=== PATIENT | female | born 1935 | race Caucasian/White ===

== ENCOUNTER → 2017-10-23 | Outpatient (CLI) | payer OTHER ==
[~2017-10-23] MED LIST: ACID CONTROL20 MG; AMBIEN 10 MG TA10 MG PO; AMBIEN 5 MG TABL5 M1 PO; ATARAX PO; ATENOLOL 100MG100 M2 PO; ATENOLOL 25 MG25 M1 PO; ATENOLOL 50 MG50 M1 PO; ATENOLOL 50MG T50 M1 PO; ATENOLOL 50MG T50 MG PO; AZITHROMYCIN 2250 MG PO; B-COMPLEX-VITA1 EACH PO; B12INJ; BALANCED B COM1 EAC2 PO; BETA CAROT10000 UNIT; BETA CAROTEN25000 IU; BETA CAROTEN25000 IU PO; BIAXIN 500 MG500 M2 PO; BRAIN MIGHT-DH1 EACH PO; BUMETANIDE 1 MG1 M1 PO; CALCIUM LACTAT100 MG PO; CARDIZEM CD180 MG PO; CARDIZEM CD240 MG PO; CARNITINE250 MG PO; CIPROFLOXACIN500 M1 PO; CO Q-1030 MG PO; COCONUT OIL100 GM MC; COD LIVER OIL1 EAC4 PO; COQ-10100 MG PO; COUMADIN 5 MG TA5 M1 PO; COUMADIN7.5 MG PO; DHEA 10 MG TAB1 EACH PO; DILTIAZEM 24HR180 M1 PO; DMAE MC; DOXYCYCLINE 10100 MG PO; ENALAPRIL MALEA10 M1 PO; FIRST-TESTOSTER60 G1 TD; FISH OIL 1,001000 M2 PO; FISH OIL 1,2001 EAC3 PO; FISHOIL; FLUOXETINE; FUROSEMIDE 40 M40 M1 PO; FUROSEMIDE PO; GLUCOSAMINE HC500 MG PO; HORMONE; HORMONE TOP; HYDROCHLOROTH12.5 MG PO; K-DUR 20 MEQ T20 MEQ PO; K-DUR10 MEQ PO; KLOR-CON 1010 MEQ PO; KLOR-CON PO; L-ARGININE HC1000 GM PO; LANSOPRAZOLE PO; LEVAQUIN 500 M500 M1 PO; LEVAQUIN 500 M500 M2 PO; LEVOTHROID PO; LEVOTHROID100 MC1 PO; LEVOTHROID88 MCG PO; LEVOTHYROXIN0.075 MG PO; LISINOPRIL-HCT1 EAC1 PO; LISINOPRIL10 MG PO; LISINOPRIL5 MG PO; LIVAPLEX PO; LOTENSIN PO; LOVENOX SC; Livaplex PO; MAGIC MOUTHWASH BLM SW&SWALLOW; MAGNESIUM250 M1 PO; MILK THISTLE1 GM MC; NITROSTAT0.3 MG PO; NITROSTAT0.4 MG SL; OMEPRAZOLE; OTC PAIN MED; OXYCODONE HCL15 MG PO; PACERONE 200 M200 M1 PO; PLAVIX 75 MG TA75 M1 PO; PRILOSEC 20 MG20 MG PO; PRINIVIL5 MG PO; PROTONIX40 M1 PO; RED YEAST RICE600 MG PO; RYTHMOL SR225 MG PO; RYTHMOL300 MG PO; SORINE 80 MG TA80 M1 PO; SPIRONOLACTONE25 M1 PO; TESTOSTERONE; TOPROL XL100 MG; TOPROL XL25 MG PO; TRAMADOL 50 MG50 MG PO; TURMERIC500 MG PO; VANTIN PO; VASOTEC10 MG PO; VITAMIN B-12100 MCG PO; VITAMIN D3400 UNIT; VITAMIN D35000 UNI1 PO; VITAMIN E400 UNIT PO; VITAMINC500 PO; ZINC CHELATE50 MG PO; [UNRECOGNIZED DRUG - OTHER]; [UNRECOGNIZED DRUG - OTHER]; [UNRECOGNIZED DRUG - OTHER]; [UNRECOGNIZED DRUG - OTHER] PO; [UNRECOGNIZED DRUG - OTHER] PO; [UNRECOGNIZED DRUG - OTHER] TOP
== END ==
LOC: M.ULTRA 12:55
DX: N63.20 Unspecified lump in the left breast, unspecified quadrant (principal)

== ENCOUNTER 2017-12-14 09:23 | Observation (INO) | payer OTHER ==
[2017-12-14] VITALS (10 sets, daily range): BP systolic 126–163; BP diastolic 55–88
[~2017-12-14] VITALS: Ht 157.5 cm; Wt 71.7 kg
--- NOTE | ~2017-12-14 | H ---
[address] [address] HISTORY AND PHYSICAL Name: REBEL ROMERO Room: [address] Mil Boucher#: [id number] Admission: 12/14/17 Attend Phys: Jun Amador MD Discharge: 12/15/17 Date of : 35 Report #: [id number] THIS REPORT FOR: //name// Please refer to the History and Physical performed in the physician's office. By: [id number] Records Staff ELY /JACKSON
[~2017-12-14 09:23] MED LIST changes: -DILTIAZEM 24HR180 M1 PO; -LEVAQUIN 500 M500 M1 PO; -LEVAQUIN 500 M500 M2 PO; -MAGIC MOUTHWASH BLM SW&SWALLOW; -PLAVIX 75 MG TA75 M1 PO
[2017-12-14] MEDS ORDERED: COUMADIN7.5 MG PO (10:17)
[2017-12-14 10:43] LABS: HEMATOCRIT 45.4 % (37.0-47.0); HEMOGLOBIN 15.1 gm/dL (12.0-15.0); MCH 30.5 pg (26.0-34.0); MCHC 33.2 g/dL (28.0-37.0); MCV 91.8 fL (80.0-100.0); MPV 8.3 fl. (7.2-11.1); RBC 4.94 mil/uL (4.20-5.00); RDW-CV 15.4 % (10.5-14.5); WBC 6.9 thou/uL (4.0-11.0)
[2017-12-14 10:53] LABS: ANION GAP 10 mmol/L (7-16); APTT 27.5 Seconds (25.0-31.3); BUN 18 mg/dL (7-18); CALCIUM 9.2 mg/dL (8.5-10.1); CHLORIDE 103 mmol/L (98-107); CO2 28 mmol/L (21-32); GLUCOSE 99 mg/dL (70-99); INR 1.2; POTASSIUM 4.1 mmol/L (3.5-5.1); PROTIME 11.7 Seconds (9.20-11.50); SODIUM 141 mmol/L (136-145)
[2017-12-14 10:58] LABS: ALKALINE PHOSPHATASE 79 U/L (46-116); CHOLESTEROL 199 mg/dL (<200); HDL CHOLESTEROL 46 mg/dL (>40); LDL CHOLESTEROL 133 mg/dL (<100); SERUM ASSESSMENT Clear; SGOT 23 U/L (15-37); SGPT 26 U/L (30-65); TC:HDL 4.3 Ratio (Not establshd); TOTAL BILIRUBIN 1.1 mg/dL (<0.1-1.0); TOTAL PROTEIN 7.6 g/dL (6.4-8.2); TRIGLYCERIDE 100 mg/dL (<150); VLDL 20 mg/dL (<40)
--- NOTE | 2017-12-14 13:55 | EKG ---
[place] [address] ELECTROCARDIOGRAM REPORT Name: REBEL ROMERO Room: [address] IN .R.#: [id number] Admission: 12/14/17 Attend Phys: Jun Amador MD Discharge: Date of : 35 Report #: [id number] THIS REPORT FOR: //name// [facility] Test Date: 2017-12-14 Test Time: 10:29:47 Pat Name: REBEL ROMERO Department: Room: Gender: F Community Development Specialist: : 1935 Requested By: Jun Amador Order Number: [id number] Dipesh MD: Carter Melendrez Measurements Intervals [place] Rate: 77 P: [place]: QRS: -23 QRSD: 131 T: 148 QT: 407 QTc: 461 Interpretive Statements Atrial tachycardia v paced rhythm Compared to ECG 03/18/2016 12:24:43 rate has slowed Electronically Signed On 12-14-2017 13:55:46 CDT by Carter Melendrez [email or web address] <ELECTRONICALLY SIGNED> By: Carter Melendrez MD, [facility] 12/14/17 1355 1029 1029 Carter Melendrez MD, FACC /EPI
--- NOTE | 2017-12-14 19:53 | NUR ---
PT ARRIVED TO ROOM 223 AT APPROX 1320 FROM MID LEVEL CLINICIAN. REPORT RECIEVED FROM DENIS HASSAN. PT A/O X4, C/O PAIN TO RIGHT WRIST. PRESSURE MAINTAINED IN VASC BAND WITH 11 CC IN. 2 CC AIR TAKEN OUT AT APPROX 1350, WHEN WRIST REASSESED 15 MIN LATER, SMALL HEMATOMA FORMED ON WRIST ABOVE THE VASC BAND. MANUAL PRESSURE HELD ON SITE, AFTER THIS BRUISE TO AREA NOTED BUT NOW SOFT AND LUMP HAD DECREASED. CONTINUED TO MONITOR CLOSELY, AFTER APPROX 1 HR, 2 ADDITIONAL CC AIR REMOVED, WHEN REASSED SMALL AMOUNT OF BLOOD OOZING FROM AREA OF CATH INSERTION, 2 CC REPLACED IN VASC BAND. CONTINUED TO MONITOR, HEMATOMA DID NOT INCREASE IN SIZE BUT DID BECOME FIRM AGAIN, MANUAL PRESSURE HELD AND DR VILLA NOTIFIED. INSTRUCTED TO MAINTAIN THE PRESSURE FOR 1 HR AND THEN SLOWLY DECREASE AIR BY 1 CC INSTEAD OF 2. STARTED TAKING 1 CC OUT AT APPROX 1700. BY 1900 6 CC TOTAL TAKEN OUT OF DEVICE. PT GIVEN PAIN MEDS PER MAR. VSS, PT USING CALL LIGHT APPROPRIALTY. FALL PRECAUTIONS IN PLACE. REPORT GIVEN TO MO PAREDES.
--- NOTE | 2017-12-14 22:07 | NUR ---
RECEIVED REPORT AND ASSUMED CARE OF PATIENT AT 1930. 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 ASSESSMENT AND VITALS COMPLETED CHARTED, VSS. PATIENT A&OX4. DENIES PAIN AND DISCOMFORT. TR BAND IN PLACE WITH MINIMAL DRIED BLOOD. HEMATOMA OBSERVED ABOVE THE BAND, SOFT AND NON-TENDER. 2 CC'S ARE REMAINING IN THE TR BAND AT THIS TIME. NO FRESH BLOOD OBSERVED. GOAL IS TO CONTINUE SLOWLY RELEASING PRESSURE FROM TR AND OBSERVE IMPROVEMENT OF HEMATOMA. PATIENT REMINDED OF POST CATH PRECAUTIONS, INCLUDING NOT USING RIGHT ARM TO LIFT ANYTHING OR PUSH SELF UP WITH. PATIENT VERBALIZES UNDERSTANDING. CALL LIGHT WITHIN REACH
[2017-12-15] VITALS (7 sets, daily range): BP systolic 133–161; BP diastolic 55–87
[2017-12-15 04:52] LABS: HEMATOCRIT 41.2 % (37.0-47.0); HEMOGLOBIN 13.7 gm/dL (12.0-15.0); MCH 30.5 pg (26.0-34.0); MCHC 33.3 g/dL (28.0-37.0); MCV 91.7 fL (80.0-100.0); MPV 8.8 fl. (7.2-11.1); RBC 4.49 mil/uL (4.20-5.00); RDW-CV 15.6 % (10.5-14.5); WBC 11.4 thou/uL (4.0-11.0)
[2017-12-15 05:22] LABS: ANION GAP 12 mmol/L (7-16); BUN 21 mg/dL (7-18); CALCIUM 8.8 mg/dL (8.5-10.1); CHLORIDE 104 mmol/L (98-107); CO2 22 mmol/L (21-32); CREATININE 0.8 mg/dL (0.6-1.3); GLUCOSE 98 mg/dL (70-99); SODIUM 138 mmol/L (136-145); TROPONIN-I LEVEL <0.06 ng/mL (<0.06)
--- NOTE | 2017-12-15 07:00 | NUR ---
PATIENT PARTIALLY PROGRESSING TOWARDS GOALS: TR BAND PRESSURE COMPLETELY RELEASED AND GAUZE/TEGADERM IN PLACE. NO DRAINAGE NOTED ON GAUZE. BRUISING REMAINS ABOVE RADIAL SITE BUT IMPROVEMENT NOTED. SITE IS SOFT AND NON-TENDER. PATIENT HAD C/O CHEST PAIN THIS AM AT 0650 RELIEVED WITH NITRO. PATIENT REPORTS SHORTNESS OF AIR, O2 2L NC PLACED WITH SATS >92%. PATIENT APPEARS ANXIOUS AND HAS SLIGHT TREMORS. WILL ADDRESS POSSIBLY ANXIETY WITH PHYSICIAN. CALL LIGHT WITHIN REACH
--- NOTE | 2017-12-15 09:55 | EKG ---
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: : 1935 Requested By: Jun Amador Order Number: [id number] Dipesh MD: Carter Melendrez Measurements Intervals [place] Rate: 71 P: IN: QRS: -8 QRSD: 138 T: 161 QT: 427 QTc: 465 Interpretive Statements Atrial fibrillation v paced complexes Left bundle branch block Compared to ECG 12/14/2017 10:29:47 Left bundle-branch block now present Electronically Signed On 12-15-2017 9:55:29 CDT by Carter Melendrez [email or web address] <ELECTRONICALLY SIGNED> By: Carter Melendrez MD, [facility] 12/15/17 0955 17 Carter Melendrez MD, [facility] /EPI
--- NOTE | 2017-12-15 10:05 | EKG ---
[place] [address] ELECTROCARDIOGRAM REPORT Name: HENRIETTAISRAMAYRA SIMMONSREBEL J Room: [address] ADM IN .R.#: [id number] Admission: 12/14/17 Attend Phys: Jun Amador MD Discharge: Date of : 35 Report #: [id number] THIS REPORT FOR: //name// [facility] Test Date: 2017-12-15 Test Time: 04:40:06 Pat Name: REBEL ROMERO Department: Room: [address] Gender: F Director Community Center: ABBI : 1935 Requested By: Jun Amador Order Number: [id number] Reading MD: Carter Melendrez Measurements Intervals [place] Rate: 75 P: [place]: QRS: 14 QRSD: 136 T: 196 QT: 420 QTc: 470 Interpretive Statements Atrial fibrillation LBBB Compared to ECG 12/14/2017 10:29:47 Intraventricular conduction delay now present Ventricular-paced complex(es) or rhythm no longer present Electronically Signed On 12-15-2017 10:05:10 CDT by Carter Melendrez [email or web address] <ELECTRONICALLY SIGNED> By: Carter Melendrez MD, [facility] 12/15/17 1005 0440 0440 Carter Melendrez MD, [facility] /EPI
--- NOTE | 2017-12-15 10:07 | EKG ---
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
--- NOTE | 2017-12-15 11:35 | NUR ---
MET WITH PT TO DISCUSS HOME SITUATION/DC PLANNING. PT LIVES WITH SPOUSE. STATES THEY ARE BOTH INDEPENDENT AND ACTIVE. PT USES NO EQUIPMENT. 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 PT HAS HAD HH IN THE PAST. DENIES ANY DC NEEDS. WILLL FOLLOW
[2017-12-15] MEDS ORDERED: PLAVIX 75 MG TA75 M1 PO (13:36)
--- NOTE | 2017-12-15 16:55 | NUR ---
ASSUMED PT CARE AT 0730, FULL ASSESMENT DONE CHARTED. PT A/O X4, C/O CHEST PAIN THIS AM, PT APPEARS VERY ANXIOUS, SHE C/O CHEST PAIN, HAD SOME NITRO THIS AM, REPORTS THAT IT DID NOT HELP, DENIES WANTING ANYMORE NITRO. PT DID WANT TO TRY SOMETHING FOR ANXIETY. ORDER FOR VALUME RECIEVED, THIS DID HELP PT, SHE WAS ABLE TO SLEEP. STATES CHEST PAIN IS GONE. PT UP WALKING AD JUDAH, ATE A GOOD LUNCH. RECIEVED DISCHARGE ORDERS, PT EDUCATED ON NEW MEDS, POST CATH INSTRUCTIONS. PT LEFT AT APPROX 1345 WITH DTR.
--- NOTE | 2017-12-16 13:25 | CARD ---
[address] [address] CARDIAC CATH REPORT Name: REBEL ROMERO Room: [address] Citlaly#: [id number] Admission: 12/14/17 Attend Phys: Jun Amador MD Discharge: 12/15/17 Date of : 35 Report #: [id number] THIS REPORT FOR: //name// APPROVED REPORT Study performed: 12/14/2017 10:32:07 Patient Details Patient Status: Out-Patient Room #: The patient is a 82 year-old female Event Personnel Jun Amador Compounding Scaler, Satinder Medina, Stella Aviles Monitor, Lisa Khoury RN Elevator Inspector, Carter Melendrez Compounding Scaler, Verónica Mijares Elevator Inspector Procedures Performed Art Access - R radial artery , Left Heart Catheterization, Selective Right and Left Coronary Angiography, PTCA with Stenting Procedure Narrative The patient was brought electively to the Cardiac Catheterization Laboratory and was prepped and draped in a sterile manner. The right wrist was infiltrated with 2% Lidocaine subcutaneous anesthesia. A Slender Glidesheath sheath was inserted into the right radial artery. Coronary angiography was performed using coronary diagnostic catheters. The right coronary system was accessed and visualized with a DCR: [place] 4.0 5fr catheter. The left coronary system was accessed and visualized with a DCR: [place] 4.0 5fr catheter. The left ventricle was accessed and visualized with a PC: Angled Pig 5fr catheter. Left ventricular/Aortic Valve gradient assessed via catheter pullback. Left ventriculogram was performed in VARELA projection. Closure device was deployed with a Fr Vasc-Band Reg 24cm. The patient tolerated the procedure well and there were no complications associated with the procedure. Intraoperative Conscious Sedation Sedation start time: 11:35 Case end Time: 12:50 Fentanyl 50 mcg Versed 3 mg Fluoro Time: 13 minutes Dose: DAP 08496 cGycm2 1675.33 mGy Contrast Type and Amount: Omnipaque [address] [place] [address] CARDIAC CATH REPORT Name: FRANCOISIRISREBEL J Room: [address]#: [id number] Admission: 12/14/17 Attend Phys: Jun Amador MD Discharge: 12/15/17 Date of : 35 Report #: [id number] Diagnostic Cath Left Main Normal. LAD Proximally normal. 50% in-stent stenosis in the midportion and 70% stenosis just beyond the stent. Diagonal 1 Branch and 70% stenosed in the proximal portion of one of the branches Circumflex Normal. OM1 Normal. OM2 Normal. Right Coronary Widely patent stent proximally. 10% narrowing in its mid and distal portion. R PDA Normal. RPLV Normal. Ramus 50% narrowing proximally. Hemodynamics The aortic pressure is 178/92 mmHg with a mean of mmHg. The left ventricular pressure is 138/11 mmHg with a mean of mmHg. The left ventricular end diastolic pressure is 21 mmHg. PCI Technique Lesion Percutaneous coronary intervention was performed on the mid left anterior descending artery segment. A XB LAD 3.0 Guide Catheter was used to engage the LCA ostium. A IG: BMW 190cm Interventional Guidewire was used to cross the lesion. BALLOON DILATION A Balloon catheter Mini Trek RX 2.0 X 12 was inserted and inflated up to 8.00atm for 12seconds. Additional Inflation: 10.00atm for 7seconds. STENT DEPLOYMENT A drug-eluting stent Xience Alpine RX 2.25X23 was inserted and inflated up to 7.00atm for 35seconds. Additional Inflation: 8.00atm for 11seconds. Additional Inflation: 10.00atm for 18seconds. Conclusion 1. 50% stenosis in the LAD stent with a 70% narrowing beyond this. 2. Mildly elevated left ventricular end-diastolic pressure. 3. Normal left ventricular systolic function. 4. successful placement of a single durg eluting stent in the mid lad Recommendations [place]iac [place] [address] CARDIAC CATH REPORT Name: REBEL ROMERO Room: [address] M.Wisam#: [id number] Admission: 12/14/17 Attend Phys: Jun Amador MD Discharge: 12/15/17 Date of : 35 Report #: [id number] Aggressive Medical Therapy Medications Administered Clopidogrel Diagnostic Cath Approved by: Jun Amador MD Date/Time: <ELECTRONICALLY SIGNED> By: Carter Melendrez MD, [facility] 12/16/17 1325 24 1325Carter Melendrez MD, FAC /INF
--- NOTE | 2017-12-18 15:28 | NUR ---
Called patient back to check on how she was doing, stated the chest pain was relieved with 2 NTG tablets and rest. Instructed her to call the net architect office and report she had chest pain and had to take NTG to relieve the pain, and also to ask them about her perscription for protonix which she states she never took before and does not have problem with reflux, or heart burn.
--- NOTE | 2018-01-05 15:04 | D ---
[address] [address] DISCHARGE SUMMARY Name: HENRIETTAISRAIRISREBEL J Room: [address] Mil Boucher#: [id number] Admission: 12/14/17 Attend Phys: Jun Amador MD Discharge: 12/15/17 Date of : 35 Report #: [id number] THIS REPORT FOR: //name// CC: Apolinar Amador DATE OF SERVICE: 12/15/2017 DISCHARGE DIAGNOSES: 1. Coronary artery disease. 2. Progressive angina. PROCEDURES DURING HOSPITALIZATION: 1. Left heart catheterization. 2. Coronary angiography. 3. Percutaneous coronary intervention to the left anterior descending coronary artery. HOSPITAL COURSE: The patient was admitted to the hospital with progressive angina and an abnormal stress test. Catheterization revealed moderate occlusive disease in the mid LAD beyond the stented portion. The patient underwent percutaneous coronary intervention with drug-eluting stent placed to the mid LAD without complication. The patient tolerated the procedure well without complication. The patient was observed overnight and discharged the following day uneventfully. DISCHARGE MEDICATIONS: Vitamin C 500 mg daily, aspirin 81 mg daily, Bumex 1 mg daily, calcium supplement one tablet daily, vitamin D 400 units as directed, Plavix 75 mg daily, coconut oil 100 mg daily, cod liver oil 1 capsule daily, vitamin B12 100 mcg daily, L-carnitine 250 mg daily, levothyroxine 0.075 mg daily, magnesium 250 mg daily, metoprolol succinate 25 mg daily, Protonix 40 mg daily, potassium chloride 10 mEq daily, red yeast rice extract 600 mg daily, turmeric 500 mg daily, CoQ10 100 mg daily, vitamin A supplement daily, vitamin E supplement daily, warfarin 5 mg 5 times weekly and 7.5 mg 2 times weekly, zinc 50 mg daily, Livaplex supplement 1-2 tablets daily. DISPOSITION: The patient is to follow up with the nurse practitioner in 2 weeks and with myself in 6 weeks. <ELECTRONICALLY SIGNED> By: Jun Amador MD, FACC 01/05/18 1504 1334 1409Micnga Amador MD, FACC /nt
== END 2017-12-15 15:19 | disposition home or self-care (01) ==
LOC: M.CL 09:23 → M.2W 13:28
PROVIDERS: ADMIT Internal Medicine Cardiovascular Disease
DX: I25.110 Atherosclerotic heart disease of native coronary artery with unstable angina pectoris (principal); I48.2 Chronic atrial fibrillation; I10 Essential (primary) hypertension; I49.5 Sick sinus syndrome; E78.2 Mixed hyperlipidemia; I42.9 Cardiomyopathy, unspecified; I11.0 Hypertensive heart disease with heart failure; I50.22 Chronic systolic (congestive) heart failure; E03.9 Hypothyroidism, unspecified; I35.1 Nonrheumatic aortic (valve) insufficiency; Z98.890 Other specified postprocedural states; Z90.710 Acquired absence of both cervix and uterus; Z90.89 Acquired absence of other organs; Z95.0 Presence of cardiac pacemaker; Z79.01 Long term (current) use of anticoagulants

== ENCOUNTER → 2018-03-09 | Outpatient (CLI) | payer OTHER ==
[~2018-03-09] MED LIST changes: +DILTIAZEM 24HR180 M1 PO; +LEVAQUIN 500 M500 M1 PO; +LEVAQUIN 500 M500 M2 PO; +MAGIC MOUTHWASH BLM SW&SWALLOW; +PLAVIX 75 MG TA75 M1 PO
== END ==
LOC: M.RAD 11:25
DX: Z12.31 Encounter for screening mammogram for malignant neoplasm of breast (principal); I11.0 Hypertensive heart disease with heart failure; I50.9 Heart failure, unspecified; E03.9 Hypothyroidism, unspecified; I48.91 Unspecified atrial fibrillation; K21.9 Gastro-esophageal reflux disease without esophagitis; Z95.0 Presence of cardiac pacemaker

== ENCOUNTER 2018-05-08 21:00 | Inpatient (IN) | payer OTHER ==
[~2018-05-08] VITALS: Ht 157.5 cm; Wt 73.0 kg
[~2018-05-08 21:00] MED LIST changes: -DILTIAZEM 24HR180 M1 PO; -LEVAQUIN 500 M500 M1 PO; -LEVAQUIN 500 M500 M2 PO; -MAGIC MOUTHWASH BLM SW&SWALLOW
[2018-05-08 21:21] VITALS: BP 159/84
[2018-05-08 21:45] LABS: HEMATOCRIT 42.9 % (37.0-47.0); HEMOGLOBIN 14.6 gm/dL (12.0-15.0); MCH 30.7 pg (26.0-34.0); MCV 90.4 fL (80.0-100.0); MPV 8.8 fl. (7.2-11.1); NUCLEATED RBCS 0 /100WBC; PLATELET COUNT* 301 thou/uL (150-400); RBC 4.74 mil/uL (4.20-5.00); RDW-CV 15.7 % (10.5-14.5); WBC 20.2 thou/uL (4.0-11.0)
[2018-05-08 21:55] LABS: ANION GAP 5 mmol/L (7-16); BUN 21 mg/dL (7-18); CALCIUM 9.6 mg/dL (8.5-10.1); CHLORIDE 91 mmol/L (98-107); CO2 25 mmol/L (21-32); CREATININE 0.9 mg/dL (0.6-1.3); GLUCOSE 108 mg/dL (70-99); POTASSIUM 4.2 mmol/L (3.5-5.1); SODIUM 121 mmol/L (136-145)
[2018-05-08 21:57] LABS: APTT 33.8 Seconds (25.0-31.3); INR 1.5; PROTIME 15.3 Seconds (9.20-11.50)
[2018-05-08 22:07] LABS: ALBUMIN 2.5 g/dL (3.4-5.0); ALKALINE PHOSPHATASE 84 U/L (46-116); MAGNESIUM 1.9 mg/dL (1.8-2.4); NT-PRO BRAIN NAT PEPTIDE 1955 pg/mL (<300); SGOT 74 U/L (15-37); SGPT 54 U/L (30-65); TOTAL BILIRUBIN 1.5 mg/dL (<0.1-1.0); TROPONIN-I LEVEL <0.06 ng/mL (<0.06)
[2018-05-08 22:08] LABS: BE 0.7 mmol/L (-2 to +3); HCO3 23.4 mmol/L (22.0-26.0); PCO2 31.9 mmHg (35.0-45.0); PO2 67.7 mmHg (75.0-100.0); pH 7.483 (7.340-7.450)
[2018-05-08 23:05] LABS: ABSOLUTE MONOCYTES 1.4 thou/uL (0.0-1.2); ABSOLUTE NEUTROPHILS 15.8 thou/uL (1.6-8.1)
[2018-05-08 23:06] LABS: LARGE PLATELETS OCCASIONAL; PLATELET ESTIMATE ADEQUATE
[2018-05-08 23:07] LABS: ANISOCYTOSIS 1+; POLYCHROMASIA 1+
[2018-05-08 23:58] LABS: URINE BLOOD 2+ (Negative); URINE CLARITY CLEAR; URINE COLOR YELLOW; URINE GLUCOSE-RANDOM NEGATIVE (Negative); URINE KETONES 1+ (Negative); URINE LEUKOCYTES-REFLEX NEGATIVE (Negative); URINE NITRITE-REFLEX NEGATIVE (Negative); URINE PROTEIN 2+ (Negative); URINE SPECIFIC GRAVITY 1.025 (1.005-1.030); URINE UROBILINOGEN 0.2 E.U./dl (0.2-1.0)
[2018-05-09] VITALS (17 sets, daily range): BP systolic 109–146; BP diastolic 57–75
[2018-05-09] LABS: URINE BILIRUBIN 1+ (Negative)
[2018-05-09 00:02] LABS: ICTOTEST (BILI CONFIRMATORY) Positive (Negative)
[2018-05-09 00:54] LABS: SQUAMOUS 4-10 Moderate /LPF (0-3)
[2018-05-09 00:55] LABS: FINE GRANULAR CASTS 4-10 Moderate /LPF (None Seen); URINE RBC 3-10 Few /HPF (0-2); URINE WBC-REFLEX 0-5 Rare /HPF (0-5)
[2018-05-09 00:56] LABS: AMORPHOUS URATES Moderate /LPF (None Seen)
--- NOTE | 2018-05-09 10:57 | EKG ---
[place] [address] ELECTROCARDIOGRAM REPORT Name: REBEL ROMERO Room: [address] ADM IN .R.#: [id number] Admission: 05/08/18 Attend Phys: Maureen Kennedy Discharge: Date of : 35 Report #: [id number] THIS REPORT FOR: //name// [facility] ED Test Date: 2018-05-08 Test Time: 21:21:11 Pat Name: REBEL ROMERO Department: Room: [facility] Gender: F Class A Lineman: SANTOSH : 1935 Requested By: Shy Pope Order Number: [id number] MD: Carter Melendrez Measurements Intervals [place] Rate: 160 P: 172 [place]: 78 QRS: -18 QRSD: 126 T: 160 QT: 301 QTc: 492 Interpretive Statements Wide-QRS tachycardia Left bundle branch block Baseline wander in lead(s) V4 Compared to ECG 12/15/2017 06:52:33 rate increased Electronically Signed On 05-09-2018 10:57:12 CDT by Carter Melendrez [email or web address] <ELECTRONICALLY SIGNED> By: Carter Melendrez MD, FACC 05/09/18 1057 20 20 Carter Melendrez MD, [facility] /EPI
[2018-05-09 11:11] LABS: ABSOLUTE LYMPHOCYTES 1.6 thou/uL (0.8-5.3); ABSOLUTE MONOCYTES 1.1 thou/uL (0.0-1.2); ABSOLUTE NEUTROPHILS 17.5 thou/uL (1.6-8.1); BASOPHILS 0.1 %; EOSINOPHILS 0.1 %; HEMATOCRIT 35.4 % (37.0-47.0); LYMPHOCYTES 7.8 %; MCH 30.4 pg (26.0-34.0); MCHC 33.1 g/dL (28.0-37.0); MCV 91.9 fL (80.0-100.0); MONOCYTES 5.5 %; MPV 8.4 fl. (7.2-11.1); NUCLEATED RBCS 0 /100WBC; PLATELET COUNT* 287 thou/uL (150-400); POLYS 86.5 %; RBC 3.85 mil/uL (4.20-5.00); RDW-CV 15.7 % (10.5-14.5); WBC 20.2 thou/uL (4.0-11.0)
[2018-05-09 11:14] LABS: HEMOGLOBIN 11.7 gm/dL (12.0-15.0)
[2018-05-09 11:18] LABS: CALCIUM 8.4 mg/dL (8.5-10.1); CREATININE 0.8 mg/dL (0.6-1.3); POTASSIUM 3.9 mmol/L (3.5-5.1)
[2018-05-09 12:21] LABS: ESR (SEDRATE) 98 mm/hr (0-30)
[2018-05-10] VITALS (9 sets, daily range): BP systolic 126–156; BP diastolic 62–82
[2018-05-10 02:56] LABS: INR 1.8; PROTIME 17.9 Seconds (9.20-11.50)
[2018-05-10 11:39] LABS: ABSOLUTE BASOPHILS 0.1 thou/uL (0.0-0.2); ABSOLUTE EOSINOPHILS 0.2 thou/uL (0.0-0.7); ABSOLUTE MONOCYTES 1.3 thou/uL (0.0-1.2); ABSOLUTE NEUTROPHILS 18.4 thou/uL (1.6-8.1); BASOPHILS 0.4 %; EOSINOPHILS 0.9 %; HEMATOCRIT 33.9 % (37.0-47.0); HEMOGLOBIN 11.1 gm/dL (12.0-15.0); LYMPHOCYTES 9.1 %; MCH 30.2 pg (26.0-34.0); MCHC 32.8 g/dL (28.0-37.0); MONOCYTES 5.8 %; MPV 8.3 fl. (7.2-11.1); NUCLEATED RBCS 0 /100WBC; PLATELET COUNT* 327 thou/uL (150-400); POLYS 83.8 %; RBC 3.69 mil/uL (4.20-5.00); RDW-CV 16.1 % (10.5-14.5)
[2018-05-10 11:53] LABS: CALCIUM 8.9 mg/dL (8.5-10.1); CREATININE 0.8 mg/dL (0.6-1.3); POTASSIUM 4.2 mmol/L (3.5-5.1)
--- NOTE | 2018-05-10 15:10 | 2DMMODE ---
[place] [address] 2 D/M-MODE ECHOCARDIOGRAM Name: FRANCOISIRISREBEL J Room: [facility] ADM IN [facility]#: [id number] Admission: 05/08/18 Attend Phys: Darshan Christine Discharge: Date of : 35 Date of Service: 05/10/18 1510 Report #: [id number] THIS REPORT FOR: //name// APPROVED REPORT Study performed: 05/10/2018 09:42:16 EXAM: Comprehensive 2D, Doppler, and color-flow Echocardiogram Patient Location: In-Patient Room #: [facility] Status: routine BSA: 1.78 HR: 90 bpm BP: 130/82 mmHg Rhythm: Atrial Fibrillation Other Information Study Quality: Good Indications Atrial Fibrillation Fever 2D Dimensions IVSd: 12.35 (7-11mm) LVOT Diam: 18.24 (18-24mm) LVDd: 37.33 mm PWd: 11.21 (7-11mm) Ascending Ao: 31.45 (22-36mm) LVDs: 26.24 (25-40mm) Aortic Root: 29.60 mm Volumes Left Atrial Volume (Systole) LA ESV Index: 46.40 mL/m2 Aortic Valve AoV Peak Eloy.: 1.79 m/s AO Peak Gr.: 12.78 mmHg LVOT Max P.19 mmHg AO Mean Gr.: 7.90 mmHg LVOT Mean P.35 mmHg LVOT Max V: 0.74 m/s AO V2 VTI: 35.52 cm LVOT Mean V: 0.55 m/s LAKSHMI (VTI): 1.10 cm2 LVOT V1 VTI: 15.02 cm Mitral Valve MV Decel. Time: 142.59 ms MV PHT: 41.35 [place] [address] 2 D/M-MODE ECHOCARDIOGRAM Name: REBEL ROMERO Room: [address] IN ..#: [id number] Admission: 05/08/18 Attend Phys: Darshan Christine Discharge: Date of : 35 Date of Service: 05/10/18 1510 Report #: [id number] MVA (PHT): 5.32 cm2 TDI Medial E' Eloy.: 0.10 m/s Lateral E' Eloy.: 0.10 m/s Pulmonary Valve PV Peak Eloy.: 0.88 m/s PV Peak Gr.: 3.13 mmHg Tricuspid Valve RAP Estimate: 5.00 mmHg TR Peak Gr.: 33.85 mmHg RVSP: 38.00 mmHg PA Pressure: 38.00 mmHg Left Ventricle The left ventricle is normal size. There is normal LV segmental wall motion. There is normal left ventricular wall thickness. Left ventricular systolic function is normal. The left ventricular ejection fraction is within the normal range. LVEF is 55-60%. This study is not technically sufficient to allow evaluation of the LV diastolic function due to atrial fibrillation. Right Ventricle The right ventricle is normal size. The right ventricular systolic function is normal. Pacemaker lead is present in the right ventricle. Atria Left atrium is moderately dilated. The right atrium size is normal. Aortic Valve Aortic valve leaflets are sclerotic with decreased opening. Trace aortic regurgitation. Mild aortic stenosis. Mitral Valve There is mitral annular calcification. Mild mitral regurgitation. No evidence of mitral valve stenosis. Tricuspid Valve The tricuspid valve is normal in structure. Trace tricuspid regurgitation. Mild pulmonary hypertension. Pulmonic Valve The pulmonary valve is normal in structure. There is no pulmonic [place] [address] 2 D/M-MODE ECHOCARDIOGRAM Name: MAYRA ROMEROHLEEN Maksim Room: [address] [place] [facility]#: [id number] Admission: 05/08/18 Attend Phys: Darshan Christine Discharge: Date of : 35 Date of Service: 05/10/18 1510 Report #: [id number] Great Vessels The aortic root is normal in size. IVC is normal in size and collapses >50% with inspiration. Pericardium There is no pericardial effusion. <Conclusion> LVEF is 55-60%. There is normal LV segmental wall motion. Left atrium is moderately dilated. Aortic valve leaflets are sclerotic with decreased opening. Mild aortic stenosis. Trace aortic regurgitation. Mild mitral regurgitation. No evidence of mitral valve stenosis. <ELECTRONICALLY SIGNED> By: Lonnie Carlin MD, FACC 05/10/181509 09 09 Lonnie Carlin MD, FACC /INF
[2018-05-10 16:34] LABS: IgA 197 mg/dL (64-422); IgG 594 mg/dL (700-1600); IgM 36 mg/dL (26-217)
[2018-05-11] VITALS (14 sets, daily range): BP systolic 118–197; BP diastolic 51–102
[2018-05-11 02:07] LABS: HEMATOCRIT 35.8 % (37.0-47.0); HEMOGLOBIN 11.7 gm/dL (12.0-15.0); MCH 29.7 pg (26.0-34.0); MCHC 32.6 g/dL (28.0-37.0); MCV 91.2 fL (80.0-100.0); MPV 8.2 fl. (7.2-11.1); RBC 3.93 mil/uL (4.20-5.00); RDW-CV 15.9 % (10.5-14.5); WBC 20.9 thou/uL (4.0-11.0)
[2018-05-11 02:16] LABS: PROTIME 35.8 Seconds (9.20-11.50)
[2018-05-11 02:18] LABS: PCO2 37.2 mmHg (35.0-45.0)
[2018-05-11 02:19] LABS: BE -1.8 mmol/L (-2 to +3); HCO3 22.6 mmol/L (22.0-26.0)
[2018-05-11 02:22] LABS: INR 3.5
[2018-05-11 02:29] LABS: ANION GAP 6 mmol/L (7-16); BUN 12 mg/dL (7-18); CALCIUM 8.7 mg/dL (8.5-10.1); CHLORIDE 98 mmol/L (98-107); CO2 26 mmol/L (21-32); CREATININE 0.7 mg/dL (0.6-1.3); GLUCOSE 108 mg/dL (70-99); POTASSIUM 3.7 mmol/L (3.5-5.1); SODIUM 130 mmol/L (136-145)
[2018-05-11 02:36] LABS: ALBUMIN 2.1 g/dL (3.4-5.0); ALKALINE PHOSPHATASE 85 U/L (46-116); SGOT 103 U/L (15-37); SGPT 87 U/L (30-65); TOTAL BILIRUBIN 0.8 mg/dL (<0.1-1.0); TOTAL PROTEIN 6.7 g/dL (6.4-8.2); TROPONIN-I LEVEL <0.06 ng/mL (<0.06)
[2018-05-11 05:51] LABS: PCO2 36.4 mmHg (35.0-45.0); pH 7.344 (7.340-7.450)
[2018-05-11 05:52] LABS: PO2 148.1 mmHg (75.0-100.0)
[2018-05-11 05:53] LABS: BE -5.7 mmol/L (-2 to +3); HCO3 19.4 mmol/L (22.0-26.0)
--- NOTE | 2018-05-11 07:22 | CON ---
[address] [address] CONSULTATION Name: HENIRETTAISRAIRISREBEL Maksim Room: [address] IN M.R.#: [id number] Admission: 05/08/18 Attend Phys: Maureen Kennedy Discharge: Date of : 35 Report #: [id number] THIS REPORT FOR: //name// CC: Apolinar Christine DATE OF SERVICE: 05/10/2018 Infectious Disease Consultation ATTENDING PHYSICIAN: Darshan Christine DO REASON FOR EVALUATION: Pneumonitis, complicated by respiratory failure, persistent leukocytosis. HISTORY OF PRESENT ILLNESS: Chart reviewed, patient examined. This is an 82-year-old woman with significant cardiac history who has progressively become weaker in the last several days with associated dyspnea, cough, not clear if she had any fevers due to clinically worsening, states her brought her to the emergency room, was found to have fevers at that point with atrial fibrillation. She was found to be encephalopathic as well due to concerns about pneumonitis based on imaging. She was admitted to the intensive care unit. She has been started empirically on antimicrobials with ceftriaxone initially, now meropenem. She is somewhat improved from a mental status standpoint at this point and nonproductive cough. Denies any particular exposure history. ALLERGIES: Numerous to PROPOXYPHENE, NONSTEROIDALS, SULFA, CARBIDOPA, HYDROCODONE, OXYCODONE, SINEMET, METHYLPREDNISOLONE, CELEBREX, and VIOXX. CURRENT MEDICATIONS: Include ipratropium/albuterol inhaler, warfarin, meropenem, diltiazem, clopidogrel, pantoprazole, cholecalciferol, tramadol, metoprolol, levothyroxine, ascorbic acid. 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 SOCIAL HISTORY: Nonsmoker, occasional ethanol. FAMILY HISTORY: Noncontributory. REVIEW OF SYSTEMS: As above. Denies any significant gastrointestinal related complaints. She has had some anorexia and poor p.o. intake and suspect she [place] [address] CONSULTATION Name: REBEL ROMERO Room: [address]#: [id number] Admission: 05/08/18 Attend Phys: Maureen Kennedy Discharge: Date of : 35 Report #: [id number] PHYSICAL EXAMINATION: GENERAL: Pleasant, alert, perhaps mildly encephalopathic. She is in moderate distress, appears chronically ill with acute component. Undernourished VITAL SIGNS: Temperature 98.5, pulse 90, respirations 25, blood pressure 130/82. SKIN: Warm, dry, no rashes. HEENT: Otherwise unremarkable. NECK: Supple. LUNGS: Scattered coarse breath sounds. HEART: Regular with some ectopy. ABDOMEN: Soft. There is no overt tenderness or peritoneal signs. GENITOURINARY: Deferred. RECTAL: Deferred. LABORATORY DATA: TSH 1.276. Electrolytes: Sodium 131, potassium 4.2, chloride 99, bicarbonate is 26, anion gap of 6, BUN and creatinine 14 and 0.8. Estimated GFR of 69. CBC: White count of 22, H and H 11.1 and 33.9, platelets of 327, total monocytosis. IMAGING DATA: Chest x-ray: Diffuse right-sided pneumonitis. Blood culture sterile thus far. Urinalysis: 0-5 white cells. Lactic acid 1.8. ASSESSMENT: Pneumonitis with associated encephalopathy. She remains tenuous at this point. There can be difficulty obtaining sputum expectoration. We will see how she does in clinic. She is on broad-spectrum therapy, which should give us adequate coverage, both of community acquired isolates and perhaps more resistant organisms as well. Continue efforts to wean off support. Thank you. We will follow. <ELECTRONICALLY SIGNED> By: Manish Arias MD 05/11/18 0722 1521 0721Manish Arias MD /nt
--- NOTE | 2018-05-11 12:46 | CON ---
[facility] [address] [place] [address] CONSULTATION Name: HEATHERREBEL J Room: [address] IN M.R.#: [id number] Admission: 05/08/18 Attend Phys: Maureen Kennedy Discharge: Date of : 35 Report #: [id number] THIS REPORT FOR: //name// CC: Apolinar Christine DATE OF SERVICE: 05/10/2018 REQUESTING PHYSICIAN: Dr. Sharp. REASON FOR CONSULTATION: Pneumonia, respiratory distress. DISCUSSION: The patient is an 82-year-old nonsmoking woman who reportedly has no prior history of known pulmonary disease. She was admitted after coming to the emergency department in the evening of the . She had developed a sore throat. Within 24 hours, she was fairly tachypneic and short of breath. Was having some cough, not bringing up much mucus. Did develop a significant fever. Family apparently reported that she has had some confusion at home. She was seen in the emergency department. She was not hypercapnic, was requiring supplemental oxygen. She had lab abnormalities noted in the ED. She was hyponatremic and had leukocytosis. X-ray revealed infiltrates. Status appeared fairly tenuous. She was placed in the intensive care unit. It is still there at the time I saw her today pending a transfer to telemetry. She is just a fair historian. Did awaken her from sleep, which probably impacted that. She denies any history of diagnosed lung disease. However, she does note intermittently she will have some shortness of breath and intermittently wheezes. She has not been on any inhalers or breathing treatments at home. She does note, however, she has wondered in the past if she might not have some asthma. She has remained fairly ill here in the intensive care unit. She has been tachypneic, though that is better this afternoon. She has not had excessively high O2 needs. She was initially fairly tachycardic on admission along with her febrile state that has improved. Blood pressure has remained adequate as well. PAST MEDICAL HISTORY: Remarkable for coronary artery disease. She also has a history of atrial fibrillation. She had breast implants done 50 years ago. One of them has ruptured. She has not been in position to have her implants removed. She has had prior episodes of pneumonia. She has been hospitalized here with previously. She has also had a pacemaker in place, has a history of GERD, carpal tunnel repair, total knee replacement on the right side, hypothyroidism, and hypertension. HOME MEDICATIONS: With the information I have, [place] [address] CONSULTATION Name: REBEL ROMERO Room: [address] IN M.R.#: [id number] Admission: 05/08/18 Attend Phys: Maureen Kennedy Discharge: Date of : 35 Report #: [id number] were Bumex, ascorbic acid, levothyroxine, potassium, cod liver oil, tramadol, magnesium, vitamin E, Protonix, Plavix, metoprolol. 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 REVIEW OF SYSTEMS: Not obtained from the patient. Fair to me to question the reliability, that she does freely admit she is weak, not been sleeping well. Consequently has some issues with her memory. She does deny any trouble with choking on p.o. intake at home. She has had decreased appetite. Denies any vomiting, though she has had some nausea. Has not had any bowel movements, but she attributes that to her decreased p.o. intake, has not had any diarrhea. No blood in her stools. No hemoptysis. She denies any syncopal episodes. She also notes that she has not had Pneumovax in quite some time. She typically does not get the flu shot. PHYSICAL EXAMINATION: GENERAL: Woman, looks stated age. She was sleeping. Was able to awaken fairly easily. Has O2 running via nasal cannula. Respirations are nonlabored. She is able to speak in full sentences. HEENT: Head is normocephalic. Sclerae are nonicteric. Mucous membranes are little dry. NECK: Negative for adenopathy. No JVD was noted. HEART: Irregularly irregular. Tones are partially obscured by overlying lung sounds. LUNGS: Show breath sounds are mildly decreased. She has scattered wheezes heard throughout. Prolonged expiratory phase. Excursion is equal. I do not appreciate any dullness to percussion. No CVA tenderness. ABDOMEN: Mildly obese, but soft, without hepatosplenomegaly. There is no guarding or rebound tenderness. EXTREMITIES: She has no clubbing. Has some arthritic changes noted of her hands. Lower extremities: She does have just some trace pretibial edema. SKIN: Warm and dry. LABORATORY AND X-RAY FINDINGS: She did have a CT scan done of her chest yesterday. It was done without contrast. She does have bilateral infiltrates seen predominantly in the lower lung horowitz, but also seen in the upper right. Some of the areas more posteriorly are relatively dense. However, no definite masses are noted. No significant pleural effusions. She does have evidence of old calcified granulomatous disease. No pathologic adenopathy. Breast implants are noted. Does have changes on the left, all consistent with leakage of her implant. Echocardiogram done this admission revealed preserved systolic function with an EF 55%-60%. RV was normal. Left atrium was moderately dilated. She had mild aortic stenosis, mild mitral regurgitation. She had mild pulmonary hypertension per the report, though I do not see an estimated PA pressure. Her blood [facility] [address] [place] [address] CONSULTATION Name: REBEL ROMERO Room: [address] IN [facility]#: [id number] Admission: 05/08/18 Attend Phys: Maureen Kennedy Discharge: Date of : 35 Report #: [id number] cultures have been sent. No growth to date. BUN is 14, creatinine is 0.8. Sodium on admission was 121, up to 131 today. Serum bicarbonate is 26. ProBNP almost 2000. Albumin 2.5, total bilirubin was 1.5. AST is 74. INR was 1.8. White blood cell count on admission was 20,200, this morning was 22,000. Hemoglobin 11.1, hematocrit 33.9, platelets 327,000. Sed rate was 24. Prealbumin was low. Arterial blood gas done on admission: On 2 L, she had a pH 7.48, pCO2 of 32, pO2 68, bicarb of 23, saturation 93%. IMPRESSION: 1. Bilateral pulmonary infiltrates, all consistent with pneumonia. By history, does not appear to be aspirating, but with her advanced age, it is something to be kept in the differential diagnosis. 2. Hypoxic respiratory failure secondary to above. 3. Active bronchospasm. Could be related to her acute illness. However, she has known intermittent wheezing at home when she has not been ill with a respiratory tract infection. It is possible she may have some undiagnosed underlying asthma. 4. Coronary artery disease. 5. Mild anemia. 6. Mild pulmonary hypertension. 7. History of coronary artery disease, as well as atrial fibrillation. RECOMMENDATIONS: 1. Continue broad spectrum antibiotics. However, we would increase her DuoNeb to every 4 hours. 2. Followup cultures. 3. Depending on how she responds, may need to consider swallow evaluation. 4. Note that she is a DNR. I think that is appropriate given her age and other comorbidities. <ELECTRONICALLY SIGNED> By: Suzi Ojeda MD 05/11/18 1246 1556 [id number] Ojeda MD /nt
--- NOTE | 2018-05-11 13:12 | CON ---
[facility] [address] [place] [address] CONSULTATION Name: HENRIETTAISRAIRISREBEL Maksim Room: [address] IN .R.#: [id number] Admission: 05/08/18 Attend Phys: Maureen Kennedy Discharge: Date of : 35 Report #: [id number] THIS REPORT FOR: //name// CC: Apolinar Garcia DATE OF SERVICE: 05/09/2018 TYPE OF REPORT: Cardiology consultation. HISTORY OF PRESENT ILLNESS: The patient is an 82-year-old white female who I was asked to see in the hospital today after she complained of a cough. The patient has an extensive past medical history. She has had multiple stents in the past. Her first stent was years ago. Her last heart catheterization was in November of this year. I performed it from the right radial artery. There was a stent in the LAD that had a 50% stenosis and a 70% stenosis just beyond the stent. The first diagonal branch had a 70% stenosis. The circumflex had no significant disease. The right coronary artery has a stent with no restenosis. I then placed a drug-eluting stent in the mid LAD. No ventriculogram was performed at that time. She has been on Plavix since that time. The patient was just seen by Dr. Amador in February. She is not very active because of her age. She has a history of atrial fibrillation and was cardioverted in the past. She has been chronically anticoagulated. She eventually underwent implantation of a pacemaker years ago. The patient states that recently she has not felt well. She complained of fatigue and a cough. She has had a fever. Denied any chest pressure, increased shortness of breath, palpitation, syncope or edema. She has apparently been confused. She was brought to the hospital yesterday and admitted. PAST MEDICAL HISTORY: Otherwise significant for ankle surgery, carpal tunnel surgery, hysterectomy and bilateral knee replacements. She has a history of hypertension and hyperlipidemia. MEDICATIONS: Consists of Bumex, Plavix, Imdur, Synthroid, metoprolol, Protonix, tramadol and warfarin. ALLERGIES: She has an intolerance to multiple medications including intolerance to AMIODARONE, DILTIAZEM, SINEMET and SPIRONOLACTONE. FAMILY HISTORY: Heart disease runs in the family. SOCIAL HISTORY: She is . She and her live in [place]. Quit smoking years ago. No alcohol abuse. REVIEW OF SYSTEMS: She has had no history of stroke [place] [address] CONSULTATION Name: REBEL ROMERO Room: [address]#: [id number] Admission: 05/08/18 Attend Phys: Maureen Kennedy Discharge: Date of : 35 Report #: [id number] peptic ulcer in the past. No kidney disease. No cancer. No psychiatric illness. No chronic skin condition. PHYSICAL EXAMINATION: GENERAL: Revealed an elderly frail-appearing female who appeared in no acute distress. VITAL SIGNS: She had a blood pressure of 150/80, pulse is 100. She has a temperature of 100. HEENT: He is anicteric. Conjunctivae pink. Mucous membranes dry. NECK: Neck veins do not appear distended. No carotid bruits. CHEST: Reveals coarse breath sounds bilaterally. CARDIOVASCULAR: Irregular rhythm. No significant murmur. ABDOMEN: Soft. EXTREMITIES: Had no edema. Dorsalis pedis pulse cannot be palpated. SKIN: Cool and dry. NEUROLOGICAL: Nonfocal. RADIOLOGICAL DATA: Her ECG showed atrial fibrillation with an increased ventricular response rate and a left bundle-branch block. Her workup so far, she actually had a previous echocardiogram in 2012 showed ejection fraction of 40%. She had a chest x-ray in the Emergency Room today that revealed pacemaker in place, tortuous aorta and no infiltrate. LABORATORY DATA: Her lab work: Sodium 132 and creatinine 0.8. Bilirubin 1.5. Albumin 2.5. Troponin 0.06. BNP 1954. LDL in November was 133. Her white blood cell count 20.2 and hemoglobin 11.7. IMPRESSION AND RECOMMENDATIONS: 1. Atrial fibrillation. Rate noted to be increased. The patient has been on metoprolol in the past for rate control. I would add diltiazem. I would continue anticoagulation with warfarin. Today, the patient's INR was noted to be 1.5. 2. Coronary artery disease. History of stents. I would continue Plavix. 3. Cardiomyopathy. The patient has been on a beta alexis. I would consider adding either an angiotensin-converting enzyme inhibitor or adrenergic receptor binder. 4. Sick sinus syndrome. The patient has a pacemaker placed. 5. Bronchitis. <ELECTRONICALLY SIGNED> By: Carter Melendrez MD, FACC 05/11/18 1312 1414 0046Carter Melendrez MD, FACC /nt
[2018-05-12] VITALS: BP 113/54
[2018-05-12 04:22] VITALS: BP 111/51
[2018-05-12 05:20] LABS: INR 4.4; PROTIME 44.9 Seconds (9.20-11.50)
[2018-05-12 05:30] LABS: CALCIUM 8.6 mg/dL (8.5-10.1); CREATININE 0.8 mg/dL (0.6-1.3); POTASSIUM 3.8 mmol/L (3.5-5.1)
[2018-05-12 08:19] VITALS: BP 127/58
[2018-05-12 12:20] VITALS: BP 131/41
[2018-05-12 16:24] VITALS: BP 128/55
[2018-05-12 19:00] VITALS: BP 109/61
[2018-05-13] VITALS (7 sets, daily range): BP systolic 109–143; BP diastolic 58–76
[2018-05-13 05:00] LABS: CALCIUM 8.8 mg/dL (8.5-10.1); CREATININE 0.7 mg/dL (0.6-1.3)
[2018-05-14 03:19] LABS: ABSOLUTE LYMPHOCYTES 2.7 thou/uL (0.8-5.3); BASOPHILS 0.2 %; EOSINOPHILS 0.3 %; HEMATOCRIT 35.1 % (37.0-47.0); HEMOGLOBIN 11.5 gm/dL (12.0-15.0); LYMPHOCYTES 18.5 %; MCH 29.8 pg (26.0-34.0); MCHC 32.6 g/dL (28.0-37.0); MCV 91.2 fL (80.0-100.0); NUCLEATED RBCS 0 /100WBC; PLATELET COUNT* 508 thou/uL (150-400); RBC 3.85 mil/uL (4.20-5.00); RDW-CV 16.2 % (10.5-14.5); WBC 14.8 thou/uL (4.0-11.0)
[2018-05-14 03:28] LABS: PROTIME 20.1 Seconds (9.20-11.50)
[2018-05-14 04:06] LABS: CALCIUM 8.4 mg/dL (8.5-10.1); CREATININE 0.8 mg/dL (0.6-1.3); POTASSIUM 4.1 mmol/L (3.5-5.1)
[2018-05-14 04:14] VITALS: BP 151/67
[2018-05-14 08:00] VITALS: BP 138/68
[2018-05-14] MEDS ORDERED: LEVAQUIN 500 M500 M2 PO (10:54)
[2018-05-14 11:30] VITALS: BP 138/68
[2018-05-14] MEDS ORDERED: LEVAQUIN 500 M500 M1 PO (13:12)
[2018-05-14] MEDS ORDERED: COUMADIN 5 MG TA5 M1 PO (13:30)
[2018-05-14] MEDS ORDERED: DILTIAZEM 24HR180 M1 PO (13:31)
[2018-05-14] MEDS ORDERED: MAGIC MOUTHWASH BLM SW&SWALLOW ×2 (13:31→13:36)
[2018-05-14 19:06] LABS: M-SPIKE Not Observed g/dL (Not Observed)
== END 2018-05-14 14:43 | disposition home or self-care (01) | DRG 871 ==
LOC: M.ERS 21:00 → M.TBA-ER 22:51 → M.ICU 22:51 → M.2W 05-11 23:30
PROVIDERS: Family Medicine; Internal Medicine; Internal Medicine Cardiovascular Disease; Personal Emergency Response Attendant; ADMIT Internal Medicine
PROC: 05H633Z Insertion of Infusion Device into Left Subclavian Vein, Percutaneous Approach (ICD-10-PCS; principal; 2018-05-08)
PROC: 5A09457 Assistance with Respiratory Ventilation, 24-96 Consecutive Hours, Continuous Positive Airway Pressure (ICD-10-PCS; 2018-05-11)
DX: A41.9 Sepsis, unspecified organism (principal); J15.6 Pneumonia due to other Gram-negative bacteria; J96.01 Acute respiratory failure with hypoxia; I50.33 Acute on chronic diastolic (congestive) heart failure; T85.43XA Leakage of breast prosthesis and implant, initial encounter; E87.1 Hypo-osmolality and hyponatremia; I42.9 Cardiomyopathy, unspecified; G93.40 Encephalopathy, unspecified; R65.20 Severe sepsis without septic shock; E03.9 Hypothyroidism, unspecified; K21.9 Gastro-esophageal reflux disease without esophagitis; Z96.653 Presence of artificial knee joint, bilateral; E78.5 Hyperlipidemia, unspecified; I25.10 Atherosclerotic heart disease of native coronary artery without angina pectoris; I49.5 Sick sinus syndrome; I11.0 Hypertensive heart disease with heart failure; J98.01 Acute bronchospasm; D64.9 Anemia, unspecified; I27.20 Pulmonary hypertension, unspecified; Z66 Do not resuscitate; Y83.8 Other surgical procedures as the cause of abnormal reaction of the patient, or of later complication, without mention of misadventure at the time of the procedure; I48.2 Chronic atrial fibrillation; K59.00 Constipation, unspecified; Z28.21 Immunization not carried out because of patient refusal; Z95.5 Presence of coronary angioplasty implant and graft; Z88.6 Allergy status to analgesic agent; Z95.0 Presence of cardiac pacemaker; Z88.2 Allergy status to sulfonamides; Z88.8 Allergy status to other drugs, medicaments and biological substances; Z90.710 Acquired absence of both cervix and uterus; Z82.49 Family history of ischemic heart disease and other diseases of the circulatory system; Y92.89 Other specified places as the place of occurrence of the external cause; Z79.01 Long term (current) use of anticoagulants

== ENCOUNTER 2019-02-03 08:50 | Inpatient (IN) | payer OTHER ==
[~2019-02-03] VITALS: Ht 157.5 cm; Wt 69.4 kg
[~2019-02-03 08:50] MED LIST changes: +DILTIAZEM 24HR180 M1 PO; +LEVAQUIN 500 M500 M1 PO; +LEVAQUIN 500 M500 M2 PO; +MAGIC MOUTHWASH BLM SW&SWALLOW; -VITAMIN B-12100 MCG PO; +VITAMIN B-12500 MCG PO
[2019-02-03 09:05] VITALS: BP 204/128
[2019-02-03 10:02] LABS: ABSOLUTE BASOPHILS 0.1 thou/uL (0.0-0.2); ABSOLUTE EOSINOPHILS 0.1 thou/uL (0.0-0.7); ABSOLUTE LYMPHOCYTES 2.6 thou/uL (0.8-5.3); ABSOLUTE MONOCYTES 0.7 thou/uL (0.0-1.2); ABSOLUTE NEUTROPHILS 8.6 thou/uL (1.6-8.1); BASOPHILS 0.6 %; EOSINOPHILS 0.7 %; HEMATOCRIT 41.3 % (37.0-47.0); HEMOGLOBIN 13.8 gm/dL (12.0-15.0); LYMPHOCYTES 21.4 %; MCH 30.8 pg (26.0-34.0); MCHC 33.4 g/dL (28.0-37.0); MCV 92.1 fL (80.0-100.0); MONOCYTES 5.5 %; MPV 7.6 fl. (7.2-11.1); NUCLEATED RBCS 0 /100WBC; PLATELET COUNT* 285 thou/uL (150-400); POLYS 71.8 %; RBC 4.48 mil/uL (4.20-5.00)
[2019-02-03 10:10] LABS: ANION GAP 12 mmol/L (7-16); BUN 12 mg/dL (7-18); CALCIUM 8.7 mg/dL (8.5-10.1); CHLORIDE 95 mmol/L (98-107); CO2 23 mmol/L (21-32); CREATININE 0.8 mg/dL (0.6-1.3); GLUCOSE 108 mg/dL (70-99); POTASSIUM 3.9 mmol/L (3.5-5.1); SODIUM 130 mmol/L (136-145)
[2019-02-03 10:11] LABS: APTT 31.3 Seconds (25.0-31.3); INR 1.5; PROTIME 15.7 Seconds (9.20-11.50)
[2019-02-03 10:26] LABS: ALBUMIN 3.3 g/dL (3.4-5.0); ALKALINE PHOSPHATASE 64 U/L (46-116); NT-PRO BRAIN NAT PEPTIDE 4941 pg/mL (<300); SGOT 20 U/L (15-37); SGPT 33 U/L (30-65); TOTAL BILIRUBIN 0.6 mg/dL (<0.1-1.0); TOTAL PROTEIN 7.4 g/dL (6.4-8.2); TROPONIN-I LEVEL <0.06 ng/mL (<0.06)
--- NOTE | 2019-02-03 11:00 | NUR ---
CT CHEST COMPLEATED PATIENT RETURNED TO ED
[2019-02-03 15:17] VITALS: BP 141/72
--- NOTE | 2019-02-03 15:45 | NUR ---
PT ARRIVED TO UNIT AT APPROX 1530, REPORT TAKEN FROM MO SHAFFER. PT A&O X4, VSS, RA, GED TEACHER TRACING AFIB, UP AD JUDAH, FULL ASSESSMENT CHARTED. PT ORIENTED TO CALL LIGHT AND ROOM, WILL CONT POC.
[2019-02-03 19:30] VITALS: BP 140/72
[2019-02-04] VITALS: BP 159/73
--- NOTE | 2019-02-04 03:42 | NUR ---
RECEIVED REPORT AND ASSUMED CARE AT 1900. VSS. CARDIAC MONITORING IN PLACE. PT DENIES COMPLAINTS OF PAIN. ASSESSMENT COMPLETED CHARTED. DISCUSSED PLAN OF CARE WITH PT, VERBALIZED UNDERSTANDING. PT UP AD JUDAH IN ROOM, ON RA. BED LOCKED IN LOWEST POSITION, CALL LIGHT WITHIN REACH.
[2019-02-04 04:00] VITALS: BP 178/89
[2019-02-04 05:35] LABS: HEMATOCRIT 42.3 % (37.0-47.0); HEMOGLOBIN 14.3 gm/dL (12.0-15.0); MCH 31.5 pg (26.0-34.0); MCHC 33.9 g/dL (28.0-37.0); MPV 7.5 fl. (7.2-11.1); RBC 4.55 mil/uL (4.20-5.00); RDW-CV 16.8 % (10.5-14.5); WBC 11.2 thou/uL (4.0-11.0)
[2019-02-04 05:56] LABS: ALBUMIN 3.1 g/dL (3.4-5.0); ALKALINE PHOSPHATASE 58 U/L (46-116); ANION GAP 5 mmol/L (7-16); BUN 14 mg/dL (7-18); CALCIUM 9.5 mg/dL (8.5-10.1); CHLORIDE 99 mmol/L (98-107); CO2 29 mmol/L (21-32); CREATININE 0.8 mg/dL (0.6-1.3); GLUCOSE 97 mg/dL (70-99); SGOT 16 U/L (15-37); SGPT 30 U/L (30-65); SODIUM 133 mmol/L (136-145); TOTAL BILIRUBIN 0.8 mg/dL (<0.1-1.0); TROPONIN-I LEVEL <0.06 ng/mL (<0.06)
[2019-02-04 06:28] LABS: INR 1.7; PROTIME 16.9 Seconds (9.20-11.50)
[2019-02-04 08:00] VITALS: BP 169/99
[2019-02-04] MEDS ORDERED: BUMETANIDE 1 MG1 M1 PO ×2 (10:07→10:35)
[2019-02-04 11:56] VITALS: BP 138/73
--- NOTE | 2019-02-04 12:40 | EKG ---
[place] [address] ELECTROCARDIOGRAM REPORT Name: REBEL ROMERO Room: [address] ADM IN .R.#: [id number] Admission: 02/03/19 Attend Phys: Jie Albrecht MD Discharge: Date of : 35 Report #: [id number] THIS REPORT FOR: //name// [facility] ED Test Date: 2019-02-03 Test Time: 09:00:20 Pat Name: REBEL ROMERO Department: Room: [facility] Gender: F Rn Gyn: : 1935 Requested By: Tarun Ray Order Number: [id number] MD: Carter Melendrez Measurements Intervals [place] Rate: 109 P: AL: QRS: -26 QRSD: 138 T: 140 QT: 377 QTc: 508 Interpretive Statements Atrial fibrillation Left bundle branch block Compared to ECG 05/08/2018 21:21:11 rate slowed Electronically Signed On 02-04-2019 12:40:34 CDT by Carter Melendrez [email or web address] <ELECTRONICALLY SIGNED> By: Carter Melendrez MD, [facility] 02/04/19 1240 0900 09 Carter Melendrez MD, [facility] /EPI
[2019-02-04] MEDS ORDERED: DILTIAZEM HCL90 MG PO (15:02)
[2019-02-04] MEDS ORDERED: DEMADEX20 MG PO (15:25)
--- NOTE | 2019-02-04 15:36 | NUR ---
Pt discharging to home, declined HH
--- NOTE | 2019-02-04 15:56 | NUR ---
ASSUSMED CARE OF PT THIS APPROX 0730. PT ASKED ABOUT WHEN THE DOCTORS WOULD BE IN TODAY BECAUSE SHE WANTED TO BE DISCHARGED. REASSESSMENT COMPLETED CHARTED. HOURLY ROUNDING COMPLETED. MEDICATIONS GIVEN CHARTED. PT WAS CLEARED TO BE DISCHARGED PENDING CARDIOLOGY. PT ASKED MULTIPLE TIMES WHEN THEY WOULD ABLE TO LEAVE AND WAS AGITATED THEY HAD TO WAIT. PT WAS INFORMED MULTIPLE TIMES THEY HAD TO WAIT UNTIL CARDIOLOGY CLEARED THEM FOR DISCHARGE. PT DISCHARGE TEACHING COMPLETED. PT VERBALIZED UNDERSTANDING. PT WAS ESCORTED TO RIDE BY STAFF AT APPROX 1555.
--- NOTE | 2019-02-04 16:15 | NUR ---
I HAVE REVIEWED AND AGREE WITH THE ASSESMENT AND NOTE OF RAMILA Mason RN ON 02/05/19
--- NOTE | 2019-02-04 16:48 | NUR ---
PT ORDERS RECEIVED AND ACKNOWLEDGED. PT WAS DISCHARGED FROM FACILITY PRIOR TO PT EVALUATION AND INTERVENTIONS COMPLETED.
--- NOTE | 2019-02-06 16:54 | CON ---
[address] [address] CONSULTATION Name: HENRIETTAISRAIRISREBEL Maksim Room: [address] IN .R.#: [id number] Admission: 02/03/19 Attend Phys: Jie Albrecht MD Discharge: 02/04/19 Date of : 35 Report #: [id number] THIS REPORT FOR: //name// CC: Apolinar Disla DATE OF SERVICE: 02/04/2019 CARDIOLOGY CONSULTATION HISTORY OF PRESENT ILLNESS: The patient is an 83-year-old white female who I was asked to see in the hospital after she complained of being short of breath. The patient has extensive complicated past medical history. She has a history of coronary artery disease and has had multiple stents in the past including a stent in [place] and at [place]. Her last stent was several years ago. She only rarely has chest pain at this time and rarely takes nitroglycerin. She has a history of atrial fibrillation and has been cardioverted several times in the past, but eventually developed permanent atrial fibrillation and has been chronically anticoagulated with warfarin. She had a permanent pacemaker when she was in [place] about 7 years ago. Recently, she has been followed by my partner, Dr. Amador. She actually just saw Dr. Amador in August this year. Her last stent was in 11/2017. She has normal left ventricular function. She was doing well at that time. However, for the past several days, she has had increasing shortness of breath, orthopnea. She denied any edema, fever or cough. She came to the hospital yesterday and was admitted. I was asked to see her for further evaluation and treatment. She notes occasional irregular heartbeat, but no syncope. PAST MEDICAL HISTORY: Otherwise significant for previous breast implant, requiring removal. She has had recent removal of several teeth and was off warfarin for a period of time. She has had a previous hysterectomy. She has a history of hypertension. MEDICATIONS: Consists of Plavix, Synthroid, metoprolol, torsemide, tramadol, warfarin. ALLERGIES: She has intolerance to multiple medications including AMIODARONE, DILTIAZEM, HYDROCODONE, SINEMET, SPIRONOLACTONE. FAMILY HISTORY: Positive for heart disease. SOCIAL HISTORY: She is . She and her live in [place]. Quit smoking years ago. No alcohol abuse. REVIEW OF SYSTEMS: She has had no history of stroke or asthma[place] [address] CONSULTATION Name: REBEL ROMERO Room: [address]#: [id number] Admission: 02/03/19 Attend Phys: Jie Albrecht MD Discharge: 02/04/19 Date of : 35 Report #: [id number] peptic ulcer. No liver disease, no kidney disease. No psychiatric illness. She had a skin cancer removed in the past. She has arthritis "all over." PHYSICAL EXAMINATION: GENERAL: Revealed an elderly female lying in bed. She appeared in no acute distress. VITAL SIGNS: Blood pressure 140/70, pulse 80, she is afebrile. HEENT: She was anicteric, conjunctivae pink. Mucous members appear moist. NECK: Veins nondistended. No carotid bruits. CHEST: Clear to auscultation. CARDIOVASCULAR: Irregular rhythm, grade 2 systolic ejection murmur. ABDOMEN: Soft. EXTREMITIES: Had no edema. Dorsalis pedis pulse 1+ bilaterally. SKIN: Cool and dry. NEUROLOGIC: Nonfocal. LYMPH: No adenopathy. MUSCULOSKELETAL: No joint effusion. LABORATORY DATA: ECG on admission showed atrial fibrillation with a left bundle branch block. Her workup, she had an echocardiogram in April 2018, last fall that showed ejection fraction 60%, left atrial enlargement, aortic sclerosis with evidence of mild aortic stenosis, mild mitral regurgitation. The peak gradient across the aortic valve was noted to be only 12 mmHg. Her most recent cardiac catheterization, I performed in November 2017 that showed only 50% stenosis of the stent in the mid LAD, 70% distal stenosis, 70% stenosis in the small diagonal branch. The right coronary had stents are widely patent. I then placed a drug-eluting stent in the distal LAD. There was normal left ventricular systolic function. Her portable chest x-ray yesterday showed normal heart size, calcified thoracic aorta, small right effusion. There was a CAT scan of the chest done that showed some pulmonary edema, coronary artery calcifications, small effusions, small lymph node. Her lab work, sodium 133, creatinine 0.8. Liver function studies were normal. Troponin 0.06. BNP 4941. White blood cell count was 11.2, hemoglobin 14.3. IMPRESSION RECOMMENDATIONS: 1. Coronary artery disease. Stent placed a year ago. I would continue Plavix. Since the patient is on warfarin, I would not recommend aspirin. The patient is having no significant angina at this time. 2. Permanent atrial fibrillation. I would continue chronic anticoagulation, maintain an INR of 2-3. Her INR yesterday was 1.7. Her rate is controlled with a beta alexis. 3. Sick sinus syndrome. The patient has a pacemaker in place. 4. Diastolic heart failure. I would continue torsemide. 5. [place] [address] CONSULTATION Name: REBEL ROMERO Room: [address] IN [facility].#: [id number] Admission: 02/03/19 Attend Phys: Jie Albrecht MD Discharge: 02/04/19 Date of : 35 Report #: [id number] 6. Hypertension. The patient is on a beta alexis. 7. Previous tobacco abuse. The patient no longer smokes. <ELECTRONICALLY SIGNED> By: Carter Melendrez MD, FACC 02/06/19 1654 1429 0020Daviannetta Melendrez MD, FACC /nt
== END 2019-02-04 15:56 | disposition home or self-care (01) | DRG 292 ==
LOC: M.ERS 08:50 → M.TBA-ER 11:50 → M.2W 11:50
PROVIDERS: Family Medicine; ADMIT Internal Medicine
DX: I11.0 Hypertensive heart disease with heart failure (principal); E87.1 Hypo-osmolality and hyponatremia; I50.33 Acute on chronic diastolic (congestive) heart failure; E03.9 Hypothyroidism, unspecified; K21.9 Gastro-esophageal reflux disease without esophagitis; I48.91 Unspecified atrial fibrillation; Z96.653 Presence of artificial knee joint, bilateral; M79.7 Fibromyalgia; I16.0 Hypertensive urgency; I25.10 Atherosclerotic heart disease of native coronary artery without angina pectoris; M19.90 Unspecified osteoarthritis, unspecified site; I49.5 Sick sinus syndrome; I48.2 Chronic atrial fibrillation; Z95.5 Presence of coronary angioplasty implant and graft; Z95.0 Presence of cardiac pacemaker; Z79.899 Other long term (current) drug therapy; Z79.01 Long term (current) use of anticoagulants; Z88.2 Allergy status to sulfonamides; Z88.8 Allergy status to other drugs, medicaments and biological substances; Z90.710 Acquired absence of both cervix and uterus; Z82.49 Family history of ischemic heart disease and other diseases of the circulatory system; Z79.02 Long term (current) use of antithrombotics/antiplatelets; Z87.891 Personal history of nicotine dependence

== ENCOUNTER → 2019-04-25 | Outpatient (CLI) | payer OTHER ==
[~2019-04-25] VITALS: Ht 157.5 cm; Wt 63.5 kg
[~2019-04-25] MED LIST changes: +DEMADEX20 MG PO; +DILTIAZEM HCL90 MG PO; +KEFLEX500 M2 PO
[2019-04-25 13:34] LABS: HEMATOCRIT 40.3 % (37.0-47.0); HEMOGLOBIN 13.8 gm/dL (12.0-15.0); MCH 32.7 pg (26.0-34.0); MCHC 34.3 g/dL (28.0-37.0); MCV 95.2 fL (80.0-100.0); MPV 8.4 fl. (7.2-11.1); RBC 4.23 mil/uL (4.20-5.00); RDW-CV 15.3 % (10.5-14.5); WBC 8.2 thou/uL (4.0-11.0)
[2019-04-25 13:44] VITALS: BP 147/62
[2019-04-25 13:44] LABS: CALCIUM 9.7 mg/dL (8.5-10.1); CREATININE 0.9 mg/dL (0.6-1.3); POTASSIUM 4.6 mmol/L (3.5-5.1)
[2019-04-25 13:46] LABS: APTT 24.7 Seconds (25.0-31.3); INR 1.1; PROTIME 10.9 Seconds (9.20-11.50)
[2019-04-25 16:46] VITALS: BP 147/82
[2019-04-25 16:58] VITALS: BP 98/68
[2019-04-25 17:12] VITALS: BP 138/58
--- NOTE | 2019-05-02 15:30 | CARD ---
[address] [address] CARDIAC CATH REPORT Name: REBEL ROMERO Room: [facility]#: [id number] Admission: 04/25/19 Attend Phys: Jun Amador MD Discharge: Date of : 35 Report #: [id number] THIS REPORT FOR: //name// APPROVED REPORT Study performed: 04/25/2019 15:28:37 Event Personnel: Jun Amador Nanofabrication Specialist, Verónica Mijares Invasive Cardiovascular Technologist, Brynn Lombardi RTR Scrub, Julia Moreno RTR Monitor Exam: Generator Change for a Single Chamber Permanent Pacemaker Indications: Arrythmia The patient is a 83 year-old female with a history of Arrhythmia. Conscious Sedation Start time: 1603 End Time: 1618 Versed 3 mg Implanted Devices: [employer] single-chamber pacemaker. Explanted Devices: [employer] dual-chamber pacemaker. Procedure The patient underwent informed consent. We discussed the details of the procedure including the risks, which include, but not limited to bleeding, infection, vascular damage, cardiac perforation, and pneumothorax. After informed consent was obtained the area of the left chest was prepped and draped in sterile fashion. Local anesthesia was achieved with 1% lidocaine. Next after an initial incision was made in the dual-chamber pacemaker generator was explanted using electrocautery and blunt dissection. The pocket was flushed with antibody solution. The atrial lead was capped. A single chamber pacing generator was attached to the ventricular lead. The device and redundant lead were then placed within the device pocket. The deep tissues were closed with interrupted stitches of 2-0 Vicryl. The skin incision was then closed with a single subcuticular stitch of 4-0 Vicryl. Several Steri-Strips were placed across the incision and a sterile Telfa dressing covered with a Tegaderm. The patient tolerated the procedure well without complication. Ventricular lead thresholds were checked and deemed to be satisfactory. Ventricular lead sensing was checked [place] [address] CARDIAC CATH REPORT Name: REBEL ROMERO Room: [facility]#: [id number] Admission: 04/25/19 Attend Phys: Jun Amador MD Discharge: Date of : 35 Report #: [id number] Generator Change The lead was attached to the appropriate receptacle on the new pulse generator and setscrews firmly tightened to insure adequate contact and stability. The lead and pulse generator were placed into the subcutaneous pocket. Sharp and sponge counts were confirmed to be correct. At this time the pocket was closed subcutaneously with a 2.0 Vicryl and the skin was closed with a 4.0 Vicryl. The operative site was dressed in sterile fashion with benzoin spray, steri strips, telfa and tegaderm and the patient was transferred to the floor in stable condition. Complications The patient tolerated the procedure well and there were no complications associated with the procedure. Findings Specimens Removed: No Estimated Blood Loss: 5 ml Conclusion 1. Pacemaker generator at elective replacement. 2. Patient's now in permanent atrial fibrillation. 3. Dual-chamber pacemaker generator replaced with a single-chamber pacemaker generator. Recommendations 1. Follow-up site check in one week. 2. Follow-up pacemaker interrogation in one to 2 months. <ELECTRONICALLY SIGNED> By: Jun Amador MD, FACC 05/02/19 1529 1529 1529Micnga Amador MD, FACC /INF
== END | disposition home or self-care (01) ==
LOC: M.CL 12:10
PROVIDERS: Internal Medicine Cardiovascular Disease
DX: Z45.010 Encounter for checking and testing of cardiac pacemaker pulse generator [battery] (principal); I49.9 Cardiac arrhythmia, unspecified; I49.5 Sick sinus syndrome; I48.21 Permanent atrial fibrillation; I11.0 Hypertensive heart disease with heart failure; I50.9 Heart failure, unspecified; I48.91 Unspecified atrial fibrillation; E03.9 Hypothyroidism, unspecified; K21.9 Gastro-esophageal reflux disease without esophagitis; M79.7 Fibromyalgia; Z98.890 Other specified postprocedural states; Z87.19 Personal history of other diseases of the digestive system; Z96.653 Presence of artificial knee joint, bilateral; Z88.2 Allergy status to sulfonamides; Z88.8 Allergy status to other drugs, medicaments and biological substances; Z79.01 Long term (current) use of anticoagulants; Z79.899 Other long term (current) drug therapy

== ENCOUNTER 2019-11-26 10:52 | Observation (INO) | payer OTHER ==
[~2019-11-26] VITALS: Ht 157.5 cm; Wt 63.5 kg
[2019-11-26] VITALS (14 sets, daily range): BP systolic 123–161; BP diastolic 43–118
--- NOTE | ~2019-11-26 | H ---
[address] [address] HISTORY AND PHYSICAL Name: REBEL ROMERO Room: [address] Mil Boucher#: [id number] Admission: 11/26/19 Attend Phys: Jun Amador MD Discharge: 11/27/19 Date of : 35 Report #: [id number] THIS REPORT FOR: //name// cc: Apolinar Parham Bruce R. DO ~ THIS REPORT FOR: //name// Please refer to the History and Physical performed in the physician's office. By: [id number] Records Staff [facility] /[place]
[2019-11-26 12:22] LABS: HEMATOCRIT 40.3 % (37.0-47.0); HEMOGLOBIN 13.4 gm/dL (12.0-15.0); MCH 31.7 pg (26.0-34.0); MCHC 33.2 g/dL (28.0-37.0); MCV 95.5 fL (80.0-100.0); MPV 8.2 fl. (7.2-11.1); RBC 4.22 mil/uL (4.20-5.00); WBC 7.7 thou/uL (4.0-11.0)
[2019-11-26 12:32] LABS: ANION GAP 10 mmol/L (7-16); BUN 21 mg/dL (7-18); CHLORIDE 101 mmol/L (98-107); CO2 26 mmol/L (21-32); CREATININE 1.1 mg/dL (0.6-1.3); GLUCOSE 94 mg/dL (70-99); POTASSIUM 4.4 mmol/L (3.5-5.1); SODIUM 137 mmol/L (136-145)
[2019-11-26 12:33] LABS: APTT 23.8 Seconds (25.0-31.3); INR 1.1; PROTIME 11.3 Seconds (9.20-11.50)
[2019-11-26 12:36] LABS: ALBUMIN 3.8 g/dL (3.4-5.0); ALKALINE PHOSPHATASE 76 U/L (46-116); CHOLESTEROL 166 mg/dL (<200); HDL CHOLESTEROL 44 mg/dL (>40); LDL CHOLESTEROL 101 mg/dL (<100); SGOT 30 U/L (15-37); SGPT 34 U/L (30-65); TC:HDL 3.8 Ratio (Not establshd); TOTAL PROTEIN 7.3 g/dL (6.4-8.2); TRIGLYCERIDE 109 mg/dL (<150); VLDL 22 mg/dL (<40)
[2019-11-26 12:37] LABS: SERUM ASSESSMENT Clear
--- NOTE | 2019-11-26 15:33 | EKG ---
[place] [address] ELECTROCARDIOGRAM REPORT Name: MAYRA ROMEROHLRAFAEL Schaeffer Room: [address] M.R.#: [id number] Admission: 11/26/19 Attend Phys: Jun Amador, Discharge: Date of : 35 Date of Service: 11/26/19 1202 Report #: [id number] THIS REPORT FOR: //name// [facility] Test Date: 2019-11-26 Test Time: 12:02:57 Pat Name: REBEL ROMERO Department: Room: [facility] Gender: F Business Information Analyst: : 1935 Requested By: Jun Amador Order Number: [id number] Dipesh MD: Andrews Longoria Measurements Intervals [place] Rate: 61 P: [place]: QRS: -33 QRSD: 141 T: 159 QT: 490 QTc: 494 Interpretive Statements Afib/flutter with moderate response LBBB Compared to ECG 02/03/2019 09:00:20 No significant changes Electronically Signed On 11-26-2019 15:32:00 CDT by Andrews Longoria [email or web address] <ELECTRONICALLY SIGNED> By: Andrews Longoria MD, [facility] 11/26/19 1532 1202 1202 Andrews Longoria MD, [facility] /EPI
--- NOTE | 2019-11-26 15:38 | EKG ---
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: : 1935 Requested By: Jun Amador Order Number: [id number] Dipesh MD: Andrews Longoria Measurements Intervals [place] Rate: 67 P: [place]: QRS: -38 QRSD: 145 T: 131 QT: 444 QTc: 469 Interpretive Statements Afib/flutter with a moderate response Left bundle branch block Compared to ECG 02/03/2019 09:00:20 No significant changes Electronically Signed On 11-26-2019 15:36:17 CDT by Andrews Longoria [email or web address] <ELECTRONICALLY SIGNED> By: Andrews Longoria MD, [facility] 11/26/19 1536 1518 1518 Andrews Longoria MD, [facility] /EPI
[2019-11-27] VITALS: BP 122/72; BP 128/64
[2019-11-27 04:00] VITALS: BP 139/63
[2019-11-27] MEDS ORDERED: DESYREL150 MG PO (04:37)
[2019-11-27 04:49] LABS: HEMATOCRIT 36.1 % (37.0-47.0); HEMOGLOBIN 12.2 gm/dL (12.0-15.0); MCH 31.5 pg (26.0-34.0); MCHC 33.8 g/dL (28.0-37.0); MCV 93.1 fL (80.0-100.0); MPV 7.8 fl. (7.2-11.1); RBC 3.88 mil/uL (4.20-5.00); RDW-CV 15.9 % (10.5-14.5); WBC 7.6 thou/uL (4.0-11.0)
[2019-11-27 05:08] LABS: ALBUMIN 3.5 g/dL (3.4-5.0); CALCIUM 8.7 mg/dL (8.5-10.1); POTASSIUM 4.4 mmol/L (3.5-5.1); TOTAL BILIRUBIN 0.7 mg/dL (<0.1-1.0); TOTAL PROTEIN 6.5 g/dL (6.4-8.2)
[2019-11-27] MEDS ORDERED: CLOPIDOGREL75 MG PO (07:56)
[2019-11-27 08:00] VITALS: BP 137/72
[2019-11-27 09:57] VITALS: BP 137/72
[2019-11-27 10:04] VITALS: BP 137/72
[2019-11-27 10:09] VITALS: BP 137/72
--- NOTE | 2019-11-27 16:34 | EKG ---
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: DREA : 1935 Requested By: Jun Amador Order Number: [id number] Dipesh MD: Jun Amador Measurements Intervals [place] Rate: 67 P: [place]: QRS: 18 QRSD: 137 T: 215 QT: 418 QTc: 442 Interpretive Statements Afib/flut and V-paced complexes No further rhythm analysis attempted due to paced rhythm IVCD, consider atypical LBBB Compared to ECG 11/26/2019 15:18:26 No significant changes Electronically Signed On 11-27-2019 16:32:12 CDT by Jun Amador [email or web address] <ELECTRONICALLY SIGNED> By: Jun Amador MD, FACC 11/27/19 1632 00 00 Jun Amador MD, FAC /EPI
--- NOTE | 2019-11-27 16:37 | EKG ---
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
--- NOTE | 2019-11-28 12:13 | CARD ---
[address] [address] CARDIAC CATH REPORT Name: REBEL ROMERO Room: [address] [place] Boucher#: [id number] Admission: 11/26/19 Attend Phys: Jun Amador MD Discharge: 11/27/19 Date of : 35 Report #: [id number] THIS REPORT FOR: //name// cc: Apolinar Parham Bruce R. DO ~ APPROVED REPORT Study performed: 11/26/2019 12:55:43 Patient Details The patient is a 84 year-old female Event Personnel Jun Amador Hansard Reporter, Stephanie Bryan RN RN, Isaura Dinh, Satinder Medina APPLE PEELER OPERATOR Scrub Procedures Performed Art Access - R femoral artery* BELKIS w/Atherectomy Single LAD [id number] [facility] Left Heart Cath w/or w/o Coronaries [id number] [facility] Indication Unstable angina , Positive stress test Risk Factors Hypercholesterolemia, Hypertension Previous Procedures/Diagnoses Previous PCI Admission/Lab Medications/Medications given during procedure Angiomax bolus and infusion Procedure Narrative The patient was brought electively to the Cardiac Catheterization Laboratory and was prepped and draped in a sterile manner. The right femoral was infiltrated with 1% Lidocaine subcutaneous anesthesia. A Pioneer 6 FR sheath was inserted into the right femoral artery. Coronary angiography was performed using coronary diagnostic catheters. The right coronary system was accessed and visualized with a Diagnostic catheter. The left coronary system was accessed and visualized with a Diagnostic catheter. The left ventricle was accessed and visualized with a Diagnostic catheter. Left ventricular/Aortic Valve gradient assessed via catheter pullback. Left ventriculogram was performed in [place] [address] CARDIAC CATH REPORT Name: REBEL ROMERO Room: [address] [place] Boucher#: [id number] Admission: 11/26/19 Attend Phys: Jun Amador MD Discharge: 11/27/19 Date of : 35 Report #: [id number] femoral angiogram was performed . Closure device was deployed with a Fr . The patient tolerated the procedure well and there were no complications associated with the procedure. There was no hematoma. Intraoperative Conscious Sedation Sedation start time: 13:33 Case end Time: 14:25 Fentanyl 50.0 mcg Versed 1.0 mg Fluoro Time: 10.9 minutes Dose: DAP 94318 cGycm2 1173.0 mGy Diagnostic Cath Left Main Normal LAD 70% and 80% mid LAD in-stent restenosis with tandem stenoses noted Diagonal 1 Normal Diagonal 2 Normal Circumflex Normal OM1 Normal Right Coronary Widely patent stents noted in the proximal to mid right coronary artery with 30% diffuse in-stent narrowing R PDA Normal RPLV Normal Left Ventriculography The left ventricle is normal in size with normal contractility. The left ventricular ejection fraction is estimated to be 60%. Left ventricular wall motion abnormalities are present. There is 1+ mitral insufficiency. The distal anterior wall and apex is mildly hypokinetic. IVUS A Guide Catheter was used to engage the 6F XB LAD 3.5 ostium. IVUS Findings AngioSculpt PTCA 2.5 X 10mm Hemodynamics The aortic pressure is 169/75 mmHg with a mean of 93 mmHg. The left ventricular pressure is 149/16 mmHg with a mean of mmHg. The left ventricular end diastolic pressure is 25 mmHg. PCI Technique Lesion Percutaneous coronary intervention was [place] [address] CARDIAC CATH REPORT Name: REBEL ROMERO Room: [address]#: [id number] Admission: 11/26/19 Attend Phys: Jun Amador MD Discharge: 11/27/19 Date of : 35 Report #: [id number] anterior descending artery segment. A 6F XB LAD 3.5 Guide Catheter was used to engage the ostium. A IG: BMW 190cm Interventional Guidewire was used to cross the lesion. BALLOON DILATION A Balloon catheter NC Euphora 2.5x12, 2.5x10 angiosculpt was inserted and inflated up to 16.00,18atm for 8seconds. Additional Inflation: 16.00atm for 11seconds. Additional Inflation: 20.00atm for 11seconds. STENT DEPLOYMENT A drug-eluting stent Resolute Agapito 2.5X26 was inserted and inflated up to 14.00atm for 6seconds. Additional Inflation: 16.00atm for 9seconds. Final angiography reveals 10 % stenosis with LILA 3 flow. COMMENTS After initial angioplasty, we performed atherotomy/atherectomy on the mid LAD prior to stenting of that vessel PCI Technique Lesion A 6F XB LAD 3.5 Guide Catheter was used to engage the ostium. BALLOON DILATION A Balloon catheter AngioSculpt PTCA 2.5 X 10mm was inserted and inflated up to 14.00atm for 21seconds. Additional Inflation: 16.00atm for 12seconds. Additional Inflation: 10.00atm for 10seconds. Conclusion 1. 70%, 80% tandem in-stent restenoses in the mid LAD. 2. Widely patent stent in the proximal to mid right coronary artery. 3. Preserved left ventricular systolic function with mild distal anterior and apical hypokinesis. 4. Successful PCI with atherectomy and stenting of the mid LAD with 10% residual narrowing and LILA-3 flow to the distal vessel Recommendations 1. Percutaneous coronary intervention to the mid left anterior descending coronary artery. 2. Continue [place] [address] CARDIAC CATH REPORT Name: REBEL ROMERO Room: [address] Mil Boucher#: [id number] Admission: 11/26/19 Attend Phys: Jun Amador MD Discharge: 11/27/19 Date of : 35 Report #: [id number] Medications Administered Clopidogrel Diagnostic Cath Approved by: Jun Amador MD Date/Time: 11/27/2019 17:24:17 <ELECTRONICALLY SIGNED> By: Andrews Longoria MD, FACC 11/28/19 121 10 10Jonilda Longoria MD, FACC /INF
--- NOTE | 2019-11-28 16:12 | D ---
[address] [address] DISCHARGE SUMMARY Name: REBEL ROMERO Room: [address] [place] Boucher#: [id number] Admission: 11/26/19 Attend Phys: Jun Amador MD Discharge: 11/27/19 Date of : 35 Report #: [id number] THIS REPORT FOR: //name// cc: Apolinar Parham Bruce R. DO ~ THIS REPORT FOR: //name// CC: [facility] physician/PCP Jun Amador Primary Physician DISCHARGE DIAGNOSES: 1. Coronary artery disease. 2. Unstable angina. 3. Chronic atrial fibrillation. 4. Hypothyroidism. 5. Hypertension. 6. History of pacemaker placement. PROCEDURES DURING THE HOSPITALIZATION: 1. Coronary angiography. 2. Left heart catheterization. 3. Left ventriculography. 4. Percutaneous coronary intervention with drug-eluting stent placement to the mid left anterior descending coronary artery. HOSPITAL COURSE: The patient was admitted to the hospital with progressive chest discomfort, dyspnea and shortness of breath. The patient had a history of coronary artery disease. A recent stress test showed evidence of possible anterior wall ischemia. The patient underwent coronary angiography. This showed in-stent restenosis in the mid left anterior descending coronary artery for which the patient had a single drug-eluting stent placed after angioplasty and atherectomy. The patient tolerated the procedure well and without complication. The patient is being discharged uneventfully. CURRENT MEDICATIONS: Aspirin 81 mg daily, Plavix 75 mg daily, metoprolol succinate 25 mg daily, potassium chloride 10 mEq daily, torsemide 20 mg daily, tramadol 50 mg q. 8 hours p.r.n., trazodone 50 mg at bedtime p.r.n. The patient is on multiple supplements. DISPOSITION: The patient will follow up with Cardiology in 4 weeks. <ELECTRONICALLY SIGNED> By: Jun Amador MD, FACC 11/28/19 1612 0857 0908Micnga Amador MD, FACC /nt
== END 2019-11-27 11:00 | disposition home or self-care (01) ==
LOC: M.CL 10:52 → M.2W 14:40 → M.TBA-CV 14:40 → M.2W 15:11
PROVIDERS: ADMIT Internal Medicine Cardiovascular Disease
DX: I25.110 Atherosclerotic heart disease of native coronary artery with unstable angina pectoris (principal); I10 Essential (primary) hypertension; E78.5 Hyperlipidemia, unspecified

== ENCOUNTER → 2019-12-25 | Outpatient (CLI) | payer OTHER ==
[~2019-12-25] MED LIST changes: +CLOPIDOGREL75 MG PO; +DESYREL150 MG PO
== END ==
LOC: M.RAD 11:27
PROVIDERS: ATTEND Nurse Practitioner
DX: R06.02 Shortness of breath (principal)

== ENCOUNTER → 2020-03-10 | Outpatient (CLI) | payer OTHER ==
--- NOTE | 2020-03-10 14:16 | 2DMMODE ---
[place] [address] 2 D/M-MODE ECHOCARDIOGRAM Name: REBEL ROMERO Room: [facility]#: [id number] Admission: 03/10/20 Attend Phys: Keerthi Escalante, Discharge: Date of : 35 Date of Service: 03/10/20 1415 Report #: [id number] THIS REPORT FOR: cc: Apolinar Colunga MD, Bruce D. MD Liston, Michael J. MD [facility] ~ APPROVED REPORT Study performed: 03/10/2020 10:57:11 EXAM: Comprehensive 2D, Doppler, and color-flow Echocardiogram Patient Location: Out-Patient BSA: 1.65 HR: 60 bpm BP: 130/82 mmHg Other Information Study Quality: Good Indications Aortic Valve Disease 2D Dimensions IVSd: 12.58 (7-11mm) LVOT Diam: 20.22 (18-24mm) LVDd: 37.28 mm PWd: 11.45 (7-11mm) Ascending Ao: 30.11 (22-36mm) LVDs: 28.82 (25-40mm) Aortic Root: 25.05 mm Volumes Left Atrial Volume (Systole) LA ESV Index: 22.60 mL/m2 Aortic Valve AoV Peak Eloy.: 2.41 m/s AO Peak Gr.: 23.19 mmHg LVOT Max P.49 mmHg AO Mean Gr.: 14.59 mmHg LVOT Mean P.69 mmHg LVOT Max V: 0.61 m/s AO V2 VTI: 54.90 cm LVOT Mean V: 0.37 m/s LAKSHMI (VTI): 0.97 cm2 LVOT V1 VTI: 16.61 cm Mitral Valve MV Decel. Time: 163.79 [place] [address] 2 D/M-MODE ECHOCARDIOGRAM Name: REBEL ROMERO Room: [facility]#: [id number] Admission: 03/10/20 Attend Phys: Keerthi Escalante, Discharge: Date of : 35 Date of Service: 03/10/20 1415 Report #: [id number] MV PHT: 47.50 ms MVA (PHT): 4.63 cm2 TDI Medial E' Eloy.: 0.06 m/s Lateral E' Eloy.: 0.06 m/s Pulmonary Valve PV Peak Eloy.: 1.26 m/s PV Peak Gr.: 6.34 mmHg Tricuspid Valve RAP Estimate: 5.00 mmHg TR Peak Gr.: 25.52 mmHg RVSP: 30.52 mmHg PA Pressure: 30.52 mmHg Left Ventricle The left ventricle is normal size. There is normal LV segmental wall motion. Mild concentric left ventricular hypertrophy. Left ventricular systolic function is normal. LVEF is 55%. This study is not technically sufficient to allow evaluation of the LV diastolic function due to atrial fibrillation. Right Ventricle The right ventricle is normal size. The right ventricular systolic function is normal. Pacemaker lead is present in the right ventricle. Atria Left atrium is mildly dilated. The right atrium size is normal. Pacemaker lead is present in the right atrium. Aortic Valve Aortic valve leaflets are sclerotic with decreased opening. Mild aortic regurgitation. Moderate to severe aortic stenosis. Mitral Valve Mild mitral annular calcification. Mild mitral regurgitation. No evidence of mitral valve stenosis. Tricuspid Valve The tricuspid valve is normal in structure. Mild tricuspid regurgitation. No pulmonary hypertension. Pulmonic Valve The pulmonary valve is normal in structure. Mild [place] [address] 2 D/M-MODE ECHOCARDIOGRAM Name: REBEL ROMERO Room: [facility]#: [id number] Admission: 03/10/20 Attend Phys: Keerthi Escalante, Discharge: Date of : 35 Date of Service: 03/10/20 1415 Report #: [id number] Great Vessels The aortic root is normal in size. IVC is normal in size and collapses >50% with inspiration. Pericardium There is no pericardial effusion. <Conclusion> The left ventricle is normal size. Mild concentric left ventricular hypertrophy. Left ventricular systolic function is normal. LVEF is 55%. Pacemaker lead is present in the right ventricle. Left atrium is mildly dilated. Aortic valve leaflets are sclerotic with decreased opening. Mild aortic regurgitation. Moderate to severe aortic stenosis. Mild mitral regurgitation. Mild tricuspid regurgitation. No pulmonary hypertension. Mild pulmonic regurgitation. IVC is normal in size and collapses >50% with inspiration. <ELECTRONICALLY SIGNED> By: Jun Amador MD, FACC 03/10/20 1415 1415 1415 Jun Amador MD, FACC /INF
== END ==
LOC: M.CRD 03-05 08:53
PROVIDERS: ATTEND Nurse Practitioner
DX: I08.8 Other rheumatic multiple valve diseases (principal)